=== PATIENT | male | born 1990 | race Caucasian/White ===

== ENCOUNTER 2022-12-01 02:28 | Emergency (ER) | payer OTHER ==
[~2022-12-01] VITALS: Ht 177.8 cm; Wt 81.6 kg
[2022-12-01] MEDS ORDERED: LIDOCAINE HCL/PF 1% 30 ML SDV ONE (02:50)
[2022-12-01] MEDS ORDERED: TDAP [DIPH/PERTUSSIS/TET] 0.5 ML VIAL IM ONE ×2 (03:00→03:06)
[2022-12-01 03:13] VITALS: BP 135/90; TEMP 98.2; O2SAT 98
== END 2022-12-01 03:13 | disposition home or self-care (01) ==
LOC: ER 02:34
DX: S81.812A Laceration without foreign body, left lower leg, initial encounter (principal); W26.8XXA Contact with other sharp object(s), not elsewhere classified, initial encounter; Y93.89 Activity, other specified; Y92.89 Other specified places as the place of occurrence of the external cause; Y99.8 Other external cause status
CPT/HCPCS: 12002; 90471; 90715; 99283; J3490